=== PATIENT | male | born 1955 | race Caucasian/White ===

== ENCOUNTER 2017-02-14 09:25 | Day surgery (SDC) | payer OTHER ==
[~2017-02-14] VITALS: Ht 172.7 cm; Wt 69.9 kg
[~2017-02-14 09:25] MED LIST: ATOR1TAB19 PO; FINA5TAB2 PO; PANT20TA PO; PROPOFOL 200 MG/20 ML VIAL As Ordered ONE
[2017-02-14] MEDS ORDERED: NS 1,000 ML IV ONE (09:45)
--- NOTE | 2017-02-14 10:09 | ROOR ---
Patient Name: Ryan Bran Procedure Date: 02/14/2017 9:51 AM Date of : 1955 Age: 61 Room: [facility] Gender: Male Note Status: Finalized Procedure: Total Colonoscopy to Cecum Indications: Screening for colorectal malignant neoplasm Providers: Marek Aguilera MD Referring MD: Asuncion Henderson NP Requesting Provider: Medicines: Monitored Anesthesia Care Complications: No immediate complications. Procedure: Pre-Anesthesia Assessment: - The heart rate, respiratory rate, oxygen saturations, blood pressure, adequacy of pulmonary ventilation, and response to care were monitored throughout the procedure. The Colonoscope was introduced through the anus and advanced to the cecum, identified by appendiceal orifice and ileocecal valve. The colonoscopy was performed without difficulty. The patient tolerated the procedure well. The quality of the bowel preparation was good. Findings: The perianal and digital rectal examinations were normal. Non-bleeding internal hemorrhoids were found during retroflexion. The hemorrhoids were small and Grade I (internal hemorrhoids that do not prolapse). Multiple small and large-mouthed diverticula were found in the rectum, recto-sigmoid colon and sigmoid colon. The exam was otherwise without abnormality on direct and retroflexion views. Impression: - Non-bleeding internal hemorrhoids. - Diverticulosis in the rectum, in the recto-sigmoid colon and in the sigmoid colon. - The examination was otherwise normal on direct and retroflexion views. - No specimens collected. - The exam was otherwise normal to the cecum. Recommendation: - Patient has a contact number available for emergencies. The signs and symptoms of potential delayed complications were discussed with the patient. Return to normal activities tomorrow. Written discharge instructions were provided to the patient. - High fiber diet. - Discharge patient to home. - Continue present medications. - Repeat colonoscopy in 10 years for screening purposes. - Return to referring physician. - The findings and recommendations were discussed with the patient's family. Marek Aguilera MD Marek Aguilera MD 02/14/2017 10:09:06 AM This report has been signed electronically. Number of Addenda: 0 Note Initiated On: 02/14/2017 9:51 AM Estimated Blood Loss: Estimated blood loss: none.
[2017-02-14 10:25] VITALS: BP 100/56
== END 2017-02-14 10:55 | disposition home or self-care (01) ==
LOC: M OPP 09:25
PROVIDERS: ATTEND Internal Medicine Gastroenterology
DX: Z12.11 Encounter for screening for malignant neoplasm of colon (principal); K64.0 First degree hemorrhoids; K57.30 Diverticulosis of large intestine without perforation or abscess without bleeding; K21.9 Gastro-esophageal reflux disease without esophagitis; E78.00 Pure hypercholesterolemia, unspecified; Z79.899 Other long term (current) drug therapy

== ENCOUNTER → 2017-08-31 | Outpatient (CLI) | payer OTHER | LOC: M WUC 08:44 | DX: M16.12 Unilateral primary osteoarthritis, left hip (principal) | CPT/HCPCS: 73502 ==

== ENCOUNTER 2018-07-10 14:07 | Emergency (ER) | payer OTHER ==
[~2018-07-10] VITALS: Ht 172.7 cm; Wt 70.5 kg
[2018-07-10 14:07] VITALS: BP 141/78
[~2018-07-10 14:07] MED LIST changes: -XARE15TA PO
[2018-07-10 15:20] LABS: INR 0.97
[2018-07-10 15:40] LABS: BLOOD UREA NITROGEN 13 MG/DL (7-18); CALCIUM LEVEL 8.9 MG/DL (8.8-10.2); CARBON DIOXIDE LEVEL 28 MEQ/L (21-32); CHLORIDE LEVEL 105 MEQ/L (98-107); CREATININE FOR GFR 1.25 MG/DL (0.70-1.30); GLOMERULAR FILTRATION RATE > 60.0 (>49); GLUCOSE, FASTING 80 MG/DL (70-100); NT-PRO BNP 52 PG/ML (<125); SODIUM LEVEL 139 MEQ/L (136-145); TROPONIN I 0.03 NG/ML (< 0.10)
[2018-07-10] MEDS ORDERED: XARE15TA PO (16:05)
[2018-07-13 14:14] LABS: CARDIOLIPIN IGA ANTIBODY <9 APL U/mL (0-11); CARDIOLIPIN IGG ANTIBODY <9 GPL U/mL (0-14); CARDIOLIPIN IGM ANTIBODY 17 MPL U/mL (0-12); PHOSPHOLIPIDS LEVEL 222 mg/dL (150-250)
[2018-07-14 00:06] LABS: ANTI THROMBIN 3 ANTIGEN IMMUNO 115 % (72-124); ANTI THROMBIN 3 FUNCT ACTIVITY 122 % (75-135); PROTEIN C FUNCTIONAL ACTIVITY 133 % (73-180); PROTEIN S FUNCTIONAL ACTIVITY 78 % (63-140)
[2018-07-14 09:59] LABS: DRVV SCREEN 44.4 SEC
[2018-07-14 10:02] LABS: PTT LUPUS TYPE ANTICOAG SCREEN 1.1 (0-1.2)
== END 2018-07-10 16:21 | disposition home or self-care (01) ==
LOC: M ED 14:07
DX: I82.412 Acute embolism and thrombosis of left femoral vein (principal); I82.432 Acute embolism and thrombosis of left popliteal vein; Z88.2 Allergy status to sulfonamides; Z79.899 Other long term (current) drug therapy

== ENCOUNTER → 2018-07-10 | Outpatient (CLI) | payer OTHER ==
[~2018-07-10] MED LIST changes: -PANT20TA PO; +PANT20TA2 PO; -PROPOFOL 200 MG/20 ML VIAL As Ordered ONE; +XARE15TA PO
--- NOTE | 2018-07-10 14:14 | REP ---
LEFT LOWER EXTREMITY DUPLEX DOPPLER VENOUS ULTRASOUND: Real-time compression and duplex Doppler interrogation of left lower extremity deep venous system is performed. There is thrombosis occluding the entire left femoral vein and popliteal vein extending inferiorly into the proximal calf veins. Left common femoral vein is patent. There is no intraluminal thrombus in the left common femoral vein. IMPRESSION: Diffuse thrombosis of the left femoral and popliteal veins extending into the proximal calf veins. Electronically Signed by Ang Meza MD 07/10/2018 04:33 P
== END ==
LOC: M RAD 12:55
PROVIDERS: ATTEND Physician Assistant
DX: I82.412 Acute embolism and thrombosis of left femoral vein (principal); I82.432 Acute embolism and thrombosis of left popliteal vein

== ENCOUNTER → 2018-10-16 | Outpatient (CLI) | payer OTHER ==
[~2018-10-16] MED LIST changes: +XARE15TA PO
--- NOTE | 2018-10-16 23:17 | REP ---
Clinical: Follow up deep venous thrombosis. Comparison: 07/10/2018. Technique: Real time wellington scale and color Doppler evaluation using linear high frequency transducer. Findings: Thrombus again identified extending from the proximal superficial femoral vein through the popliteal vein and trifurcation without significant change from prior examination. Impression: No significant change with deep venous thrombosis again noted extending from the proximal superficial femoral vein through the trifurcation below the popliteal vein. Electronically Signed by Otis Jean MD 10/16/2018 11:08 P
== END ==
LOC: M RAD 08:38
PROVIDERS: ATTEND Surgery Vascular Surgery
DX: I82.412 Acute embolism and thrombosis of left femoral vein (principal); I82.432 Acute embolism and thrombosis of left popliteal vein; I82.442 Acute embolism and thrombosis of left tibial vein

== ENCOUNTER → 2019-01-15 | Outpatient (CLI) | payer OTHER ==
--- NOTE | 2019-01-15 08:25 | REP ---
Left lower extremity deep vein duplex ultrasound: Comparison is 10/13/2018. There is intraluminal thrombus in the deep veins extending from the popliteal vein to the proximal femoral vein, The thrombus is nonocclusive, compatible with chronic thrombus. 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 There is nonocclusive thrombus in both portions of the duplication. Impression: Extensive nonocclusive thrombus in the left lower extremity deep veins, compatible with chronic thrombus. Electronically Signed by Ang Bazan MD 01/15/2019 08:16 A
== END ==
LOC: M RAD 07:28
PROVIDERS: ATTEND Surgery Vascular Surgery
DX: I82.512 Chronic embolism and thrombosis of left femoral vein (principal); I82.532 Chronic embolism and thrombosis of left popliteal vein; I82.432 Acute embolism and thrombosis of left popliteal vein

== ENCOUNTER → 2019-12-06 | Outpatient (REF) | payer OTHER ==
[~2019-12-06] MED LIST changes: -PANT20TA2 PO; +PANT20TA6 PO
[2019-12-06 16:15] LABS: APPEARANCE, URINE CLEAR (CLEAR); BACTERIA, URINE AUTO NEGATIVE (NEGATIVE); BILIRUBIN, URINE AUTO NEGATIVE (NEGATIVE); BLOOD, URINE BLOOD NEGATIVE (NEGATIVE); COLOR, URINE YELLOW (YELLOW); GLUCOSE, URINE (UA) AUTO NEGATIVE (NEGATIVE); KETONE, URINE AUTO NEGATIVE (NEGATIVE); LEUKOCYTE ESTERASE, URINE AUTO NEGATIVE (NEGATIVE); NITRITE, URINE AUTO NEGATIVE (NEGATIVE); PROTEIN, URINE AUTO NEGATIVE (NEGATIVE); RBC, URINE AUTO 1 /HPF (0-3); SPECIFIC GRAVITY URINE AUTO 1.011 (1.002-1.035); SQUAMOUS EPITHELIAL CELL UR AU 0 /HPF (0-6); UROBILINOGEN, URINE AUTO 0.2 mg/dL (0.0-2.0); WBC, URINE AUTO 1 /HPF (0-3)
== END ==
LOC: M LAB REF 11:57
PROVIDERS: ATTEND Nurse Practitioner Adult Health
DX: R31.9 Hematuria, unspecified (principal)